=== PATIENT | male | born 1955 | race Caucasian/White ===

== ENCOUNTER 2021-10-05 08:50 | Outpatient (REF) | payer MEDICARE, MEDICAID, SELFPAY ==
[2021-10-05 11:26] LABS: Hematocrit 45.3 % (42.0-52.0); Hemoglobin 14.7 g/dl (14.0-18.0); Mean Corpuscular HGB Conc 32.5 g/dl (31.0-36.0); Mean Corpuscular Hemoglobin 29.1 pg (27.0-33.0); Mean Corpuscular Volume 89.7 fL (80.0-98.0); Mean Platelet Volume 9.3 fL (9.4-12.4); Platelet Count 419 X10*3/uL (160-400); Red Blood Count 5.05 X10*6/uL (4.60-5.80); Red Cell Distribution Width 13.6 % (11.0-16.0); White Blood Count 11.8 X10*3/uL (4.8-10.8)
[2021-10-05 11:40] LABS: Estimated Average Glucose 131 mg/dL; Hemoglobin A1c % 6.2 %
[2021-10-05 12:10] LABS: Anion Gap 15 (12-20); Blood Urea Nitrogen 16 mg/dL (9-16); Calcium 8.9 mg/dL (8.4-10.2); Carbon Dioxide 22 mmol/L (22-29); Chloride 108 mmol/L (96-108); Cholesterol 139 mg/dL; Estimated Glomerular Filt Rate > 60; Glucose Random 143 mg/dL (60-115); HDL Cholesterol 31 mg/dL; LDL Cholesterol Calculated 75 mg/dl; Potassium 4.2 mmol/L (3.3-5.1); Sodium 141 mmol/L (135-145); Triglycerides 165 mg/dL
[2021-10-05 12:20] LABS: Prostate Specific Antigen Scr 2.21 ng/mL (<0.05-4.0)
== END 2021-10-05 08:51 | disposition home or self-care (01) ==
LOC: HO.HMGCLDS 08:50
PROVIDERS: PCP Internal Medicine; Visit Provider Nurse Practitioner Family
DX: Z12.5 Encounter for screening for malignant neoplasm of prostate (principal); E11.9 Type 2 diabetes mellitus without complications; E78.00 Pure hypercholesterolemia, unspecified; I10 Essential (primary) hypertension
CPT/HCPCS: 36415; 80048; 80061; 83036; 84153; 85027

== ENCOUNTER 2021-10-31 12:17 | Outpatient (REF) | payer MEDICARE, MEDICAID, SELFPAY ==
--- NOTE | ~2021-10-31 | XR_ITS ---
EXAMINATION: XR SHOULDER, LEFT CLINICAL INFORMATION: Pain COMPARISON: None TECHNIQUE: Three views of the left shoulder. FINDINGS: Bone alignment is normal. No acute fracture or dislocation is seen. There is a small well-corticated soft tissue calcification adjacent to the distal clavicle questionable for old trauma. There is arthritis at the glenohumeral and acromioclavicular joints. XR/XR shoulder LT min 2V IMPRESSION: No acute fracture or dislocation. Arthritis at the glenohumeral and acromioclavicular joints.
--- NOTE | ~2021-10-31 | XR_ITS ---
EXAMINATION: LEFT HAND AND WRIST X-RAY CLINICAL INFORMATION: Pain. COMPARISON: None. TECHNIQUE: 3 views of the left hand and wrist. FINDINGS: There is an impacted fracture of the left distal radius. This appears intra-articular with the radiocarpal joint. The scaphoid bone appears foreshortened on the available views. There is question of dorsal tilt of the lunate on the lateral view. There appears to be arthritis with bony osteophyte projecting over the dorsal scapholunate joint and radiocarpal joint on the lateral view. There is a well-corticated ossification adjacent to the ulnar styloid may represent an old fracture. There is arthritis at the [facility]st [facility] joint. There is diffuse soft tissue swelling about the wrist. XR/XR hand wrist LT IMPRESSION: Acute impacted left distal radius fracture intra-articular with the radiocarpal joint. Severe arthritis at the wrist. Limited evaluation of the scaphoid and lunate and question abnormal alignment of the scapholunate joint. Additional imaging recommended. Ulnar styloid fracture, probably old.
== END 2021-10-31 12:18 | disposition home or self-care (01) ==
LOC: HO.HMGCX 12:17
PROVIDERS: Visit Provider Nurse Practitioner Family
DX: M25.512 Pain in left shoulder (principal); M79.642 Pain in left hand
CPT/HCPCS: 73030; 73110; 73130

== ENCOUNTER 2021-11-02 09:03 | Outpatient (REF) | payer MEDICARE, MEDICAID, SELFPAY ==
--- NOTE | ~2021-11-02 | XR_ITS ---
EXAMINATION: XR WRIST, LEFT CLINICAL INFORMATION: Left wrist pain. COMPARISON: Left hand and wrist radiograph dated 10/31/2021. TECHNIQUE: PA, lateral, and oblique views of the left wrist. FINDINGS: Redemonstration of a comminuted and mildly displaced distal radial fracture with a dominant transverse component as well as oblique components extending to the radiocarpal articular surface. No significant change in anatomic alignment or interval new bone/callus formation. Redemonstration of prominent radial carpal joint space narrowing with marginal osteophytes. Triscaphe and 1st carpometacarpal joint space narrowing with small marginal osteophytes again noted. Mild widening of the scapholunate space appears unchanged, which could indicate an underlying scapholunate ligament injury. XR/XR wrist LT min 3V IMPRESSION: 1. Comminuted and mildly displaced distal radial fracture with extension to the articular surface, unchanged. 2. Mild widening of the scapholunate interval, unchanged and likely indicating an underlying scapholunate ligament injury. 3. Prominent osteoarthritis at the radiocarpal joint as well as more moderate osteoarthritis at the triscaphe and 1st carpometacarpal joints, unchanged.
== END 2021-11-02 09:04 | disposition home or self-care (01) ==
LOC: HO.HOSX 09:03
PROVIDERS: Visit Provider Physician Assistant
DX: S52.502D Unspecified fracture of the lower end of left radius, subsequent encounter for closed fracture with routine healing (principal)
CPT/HCPCS: 73110; 99202

== ENCOUNTER 2021-11-06 08:51 | Day surgery (SDC) | payer MEDICARE, MEDICAID, SELFPAY ==
--- NOTE | 2021-11-03 11:06 | P.CONAN_ITS ---
Documented by User: Miriam Yuan NP 11/03/21 11:10 HPI - Anesthesia Eval Consult details Narrative: 66yo M for Left Radius Distal Fracture ORIF [facility] admit with COVID 05/2021. RODRIGO likely d/t dehydration, no hypoxia. F/U with PCP states resolved. [facility] Active Problems Active Problems: All Active Problems (Updated 10/31/21 @ 15:02 by TRISTON Pina) Fracture of left distal radius (Acute) Left wrist pain (Acute) Left shoulder pain (Acute) Left hand pain (Acute) Headache (Acute) Status post fall (Acute) Acute kidney injury (Acute) COVID-19 (Acute) Primary osteoarthritis of shoulders, bilateral (Acute) Vitamin D deficiency (Acute) Pure hypercholesterolemia (Acute) Diabetes mellitus (Acute) Benign essential hypertension (Acute) Hearing impairment (Acute) Hypercholesteremia (Acute) Colonoscopy refused (Acute) Prostate cancer screening (Acute) Diabetes type 2, controlled (Acute) Essential (primary) hypertension (Acute) Medicare annual wellness visit, initial (Acute ~08/21/21) Past Medical History Medical History Benign essential hypertension Diabetes mellitus Primary osteoarthritis of shoulders, bilateral Pure hypercholesterolemia Vitamin D deficiency Surgical History Surgical History No pertinent past surgical history Social History Social History (Updated 11/02/21 @ 10:23 by SVETLANA Plascencia) Housing: Apartment Alcohol intake: former Patient Tobacco Use Status: Former Tobacco user Second Hand Smoke Exposure: Yes Use of substances other than those prescribed or required for medical reasons: No Are you DNR?: No Advance Directives: No Advance Directives Information Provided: Yes service: No Current occupational status: retired Current occupation: rt hand Meds Allergies Allergy/AdvReac Type Severity Reaction Status Date / Time meperidine [Demerol] Allergy Unknown Unknown Verified 11/02/21 10:22 Exam Exam Date and Time: November 03, 2021 1106 Pertinent Lab Results Pertinent Lab Results: Laboratory Tests 10/05/21 10/05/21 09:03 09:03 WBC 11.8 H Hgb 14.7 Hct 45.3 Plt Count 419 H Sodium 141 Potassium 4.2 Chloride 108 Carbon Dioxide 22 BUN 16 Creatinine 1.00 A1C = 6.2% Narrative Narrative: EKG 05/2021 ([facility]) SR @ 82 Assessment and Plan Assessment Anesthesia Assessment: Chart Reviewed Documented by User: Diego Quiros MD 11/06/21 13:17 [facility] Past Medical History Medical History Benign essential hypertension Diabetes mellitus Primary osteoarthritis of shoulders, bilateral Pure hypercholesterolemia Vitamin D deficiency Family History Family history of problems with anesthesia: No Surgical History Surgical History No pertinent past surgical history History of Problems with Anesthesia: No Social History Social History (Updated 11/02/21 @ 10:23 by Mishel Pineda [facility]) Housing: Apartment Alcohol intake: former Patient Tobacco Use Status: Former Tobacco user Second Hand Smoke Exposure: Yes Use of substances other than those prescribed or required for medical reasons: No Are you DNR?: No Advance Directives: No Advance Directives Information Provided: Yes service: No Current occupational status: retired Current occupation: rt hand Meds Allergies Allergy/AdvReac Type Severity Reaction Status Date / Time meperidine [Demerol] Allergy Unknown Unknown Verified 11/02/21 10:22 Exam Airway Mallampati Class: III TM Dist: >3cm Neck ROM: Full Denture: Upper and Lower Assessment and Plan Assessment Anesthesia Assessment: Anesthesia Plan Discussed and Chart Reviewed Final Anesthetic Review Family History of Problems with Anesthesia: No History of Problems with Anesthesia: No NPO: Yes ASA Class: II Final Preanesthetic Review: No Changes in Pt Med Stat, Meds/Allgs Chart Reviewed, Consent Obtained/Reviewed and Anes Risks/Benef Reviewed Patient Risk: Intermediate Procedure Risk: Low Anesthetic Plan Anesthetic Plan: GA and Regional Block Disposition: Standard PACU
[2021-11-06] VITALS (12 sets, daily range): BP systolic 117–144; BP diastolic 62–82; PULSE 72–86; RESP 16–18; TEMP 36.6–37.2; O2SAT 93–98; BMI 20.5
--- NOTE | ~2021-11-06 | FL_ITS ---
EXAMINATION: XR FLUOROSCOPY WITH IMAGES CLINICAL INFORMATION: Left distal radius fracture. COMPARISON: Previous x-ray 11/02/2021. TECHNIQUE: Fluoroscopy performed by Mary Phillips. Fluoroscopy time: 1 minute DAP: [id number] Images: 4 FINDINGS: Images demonstrate new plate and screws transfixing the left distal radius fracture with improved alignment. FL/FL guidance in OR IMPRESSION: Fluoroscopic guidance for ORIF of left distal radius fracture.
[2021-11-06 10:39] LABS: Glucose, Whole Blood 167 mg/dL (60-115)
--- NOTE | 2021-11-06 11:45 | MHC.SHP ---
Pre-Procedural Eval Section A Date of Service: 11/06/21 Section B Chief Complaint: fx of lower end of left radius and numbness today Allergies: Allergies Allergy/AdvReac Type Severity Reaction Status Date / Time meperidine [Demerol] Allergy Unknown Unknown Verified 11/02/21 10:22 Plan Diagnosis/Plan: Change (for left distal radius ORIF, and CTR) I have reviewed the history and physical and performed a pertinent physical examination on my patient. No changes have occurred unless specified.
--- NOTE | 2021-11-06 11:46 | P.OP_ITS ---
Operative Note Operative Note Date of Service: 11/06/21 Narrative: Operative Note Narrative: Preop diagnosis: 1. Left Distal radius fracture 2. Left carpal tunnel syndrome, acute Postop diagnosis: Same Procedure: 1. Left Distal radius fracture open reduction internal fixation , extra- articular 2. Left carpal tunnel release Surgeon: Mary Phillips MD Anesthesia: Mac plus regional block Findings: left distal radius fracture Implants: A 3 hole Accu Med volar locking plate, with 4x 2.3 mm locking pegs/screws, and 3 3.5 mm cortical screws Tourniquet time: 55 minutes EBL: 5.0 ml Specimen: None Drains: None Complications: None Disposition: Brought to the recovery room in stable condition Plan: Follow-up in 10-14 days for wound check, suture removal and postop radiographs The patient will be placed in a volar wrist splint. Encouraged no lifting of anything heavier than a cell phone. Please encourage active and passive range of motion of the digits. Follow-up at 4-5 weeks postop for repeat radiographs. Indications: The patient is a 66 year old man with a left distal radius fracture and numbness that is now persistent in his fingertips . The risks and benefits of operative treatment, including but not limited to risk of damage to blood vessels, nerves, tendons, infection, recurrence, persistent pain or numbness, incomplete resolution of preoperative symptoms, or need for further surgery were discussed with the patient and they wished to proceed with surgery. Procedure: Once consent was obtained patient was brought back to the operating suite and placed in the operating table in a supine position. A regional block was performed by the anesthesia team. Perioperative antibiotics and anesthesia was administered by the anesthesia team. A tourniquet was applied to the proximal aspect of the left upper extremity and the limb was prepped and draped in a standard surgical fashion. The limb was elevated exsanguinated with Esmarch bandage and the tourniquet inflated to 250 mm of mercury for a total tourniquet time of 55 minutes. Once assured that we had a good block, a 1.5 cm longitudinal incision was made centered over the left carpal tunnel. The incision was made through the skin to the subcutaneous tissues using a #15 blade. Dissection was made down to the level of the transverse carpal ligament with care being taken to protect the palmar cutaneous nerve. Once the transverse carpal ligament was clearly visualized, a longitudinal incision was made in the transverse carpal ligament 1st using a #15 blade, then using tenotomy scissors under direct visualization. Care was taken to look for and protect the motor branch of the median nerve when seen in this area. Once satisfied with our carpal tunnel release the wound was irrigated with normal saline. The FluoroScan was used throughout the case to assess our reduction, and facilitate implant placement. A gentle closed reduction was 1st performed on the patient's left distal radius fracture. Was assessed radiographically befor e proceeding with the reduction internal fixation. I then made an 8 cm longitudinal incision over the distal aspect of the flexor carpi radialis tendon. The incision was made through the skin to the subcutaneous tissue using a 15. Blade. Then carefully dissected down to flexor carpi radialis tendon she tenotomy scissors. The FCR tendon sheath was then incised longitudinally using tenotomy scissors under direct visualization. The FCR tendon was then retracted ulnarly. I then made a longitudinal incision in the volar forearm fascia through the floor of FCR tendon sheath using tenotomy scissors under direct visualization. I identified the interval between the radial artery and the flexor tendons. This interval was developed further with my index finger, releasing some of the muscular fibers of the flexor pollicis longus. A dull weatlander retractor was then placed. I then created an ulnarly based flap of the pronator quadratus by releasing the radial and distal edges using a 15. Blade. A Dunham elevator was used to elevate the pronator quadratus from the volar surface of the distal radius. This then revealed to us our distal radius fracture. An open reduction was then performed on our distal radius fracture. I then placed a short narrow 3 hole Accu Med volar locking plate on the volar surface of the distal radius. I placed a single K-wire through the distal aspect of the plate and into the distal radius. This was assessed using fluoroscopic images. I was satisfied with the placement of our plate. I then placed 4x 2.3 mm locking screws/pegs in the distal aspect of the plate and distal radius by 1st drilling bicortically with a 1.8 mm drill bit, measuring with a depth gauge, and placing the appropriate length locking screws/pegs. The placement of our plate and screws was then assessed again using fluoroscopic images. The once satisfied with the placement of the volar locking plate and screws on the distal aspect of the distal radius, the plate was then reduced to the shaft of the radius. I then placed 3 3.5 mm cortical screws to the proximal aspect of the plate and into the shaft of the radius. This was done by 1st drilling bicortically with a 2.8 mm drill bit, measuring with a depth gauge, and placing the appropriate length screw. Final radiographs were then obtained. The DRUJ was assessed and found to be stable on exam. I was satisfied with our reduction and placement of all implants. At this point the wound was irrigated with normal saline. The pronator quadratus was reduced back over the volar locking plate using some 3-0 Vicryl suture material. The tourniquet was then deflated and hemostasis was obtained with a brief period of local pressure and bipolar monopolar electrocautery. The subcutaneous layer was then reapproximated using some 4-0 Vicryl suture, and the skin edges were reapproximated using some 5 0 Prolene suture. The wound was then infiltrated with some 1% lidocaine with epinephrine postop pain control. A sterile dressing and a short dorsal splint allowing for active flexion and extension of the digits was applied. The patient appears to have tolerated the procedure well and with no complications. All digits were well vascularized conclusion of the case.
== END 2021-11-06 16:45 | disposition home or self-care (01) ==
PROVIDERS: PCP Internal Medicine; Visit Provider Orthopaedic Surgery
PROC: (CPT 25607; principal; 2021-11-06 10:40)
PROC: (CPT 64721; 2021-11-06 10:40)
DX: S52.552A Other extraarticular fracture of lower end of left radius, initial encounter for closed fracture (principal); G56.02 Carpal tunnel syndrome, left upper limb; R20.0 Anesthesia of skin; G25.0 Essential tremor; W17.89XA Other fall from one level to another, initial encounter; Y93.K1 Activity, walking an animal; Y92.9 Unspecified place or not applicable; Y99.8 Other external cause status; I10 Essential (primary) hypertension; E11.9 Type 2 diabetes mellitus without complications; E78.00 Pure hypercholesterolemia, unspecified; E55.9 Vitamin D deficiency, unspecified; M19.012 Primary osteoarthritis, left shoulder; M19.011 Primary osteoarthritis, right shoulder; H91.90 Unspecified hearing loss, unspecified ear; H54.8 Legal blindness, as defined in USA; Z79.899 Other long term (current) drug therapy; Z88.8 Allergy status to other drugs, medicaments and biological substances; Z86.16 Personal history of COVID-19; Z87.891 Personal history of nicotine dependence
CPT/HCPCS: 25607; 64721; 82947; C1713; C1769; J0690; J1100; J2250; J2405; J3010

== ENCOUNTER 2021-11-21 09:07 | Outpatient (REF) | payer MEDICARE, MEDICAID, SELFPAY ==
--- NOTE | ~2021-11-21 | XR_ITS ---
EXAMINATION: XR WRIST, LEFT CLINICAL INFORMATION: Pain COMPARISON: None TECHNIQUE: PA, lateral, and oblique views of the left wrist. FINDINGS: Postsurgical changes, hardware plate and multiple screws through the distal radius across the fracture lines, anatomic alignment restored. Distal ulna, radiocarpal, intercarpal and carpometacarpal joints are intact, there are underlying degenerative osteoarthritic changes. XR/XR wrist LT min 3V IMPRESSION: Hardware, ORIF distal radial fracture. Degenerative osteoarthritis.
== END 2021-11-21 09:08 | disposition home or self-care (01) ==
LOC: HO.HOSX 09:07
PROVIDERS: Visit Provider Orthopaedic Surgery
DX: S52.502A Unspecified fracture of the lower end of left radius, initial encounter for closed fracture (principal)
CPT/HCPCS: 29125; 73110; 99212

== ENCOUNTER 2021-12-13 08:09 | Outpatient (REF) | payer MEDICARE, MEDICAID, SELFPAY ==
--- NOTE | ~2021-12-13 | XR_ITS ---
EXAMINATION: XR WRIST, LEFT CLINICAL INFORMATION: Pain in left wrist COMPARISON: None TECHNIQUE: PA, lateral, and oblique views of the left wrist. FINDINGS: There is old healed distal radial fracture with volar plate and screws. There is loss of and radiocarpal, scapholunate lunate joints with mild dorsal spurring. No new acute fracture or dislocation seen. There is mild dorsal soft tissue swelling. XR/XR wrist LT min 3V IMPRESSION: Old healed fracture distal radius with volar hardware stable. There are degenerative arthritic changes involving the wrist joint as described above.
== END 2021-12-13 08:10 | disposition home or self-care (01) ==
LOC: HO.HOSX 08:09
PROVIDERS: Visit Provider Orthopaedic Surgery
DX: S52.502D Unspecified fracture of the lower end of left radius, subsequent encounter for closed fracture with routine healing (principal)
CPT/HCPCS: 73110; 99212

== ENCOUNTER 2022-02-12 10:23 | Outpatient (REF) | payer MEDICARE, MEDICAID, SELFPAY ==
[2022-02-12 11:14] LABS: MANUAL DIFF FLAG NO
[2022-02-12 11:21] LABS: Basophils Percent Auto 0.2 % (0-2); Eosinophils Absolute Auto 0.2 X10*3/uL (0.0-0.4); Eosinophils Percent Auto 1.2 % (0-4); Hematocrit 42.8 % (42.0-52.0); Hemoglobin 13.4 g/dl (14.0-18.0); Imm Gran Abs Auto 0.05 X10*3/uL (0.00-0.03); Imm Gran Pct Auto 0.4 % (0.0-0.4); Lymphocytes Percent Auto 24.2 % (20-40); Mean Corpuscular HGB Conc 31.3 g/dl (31.0-36.0); Mean Corpuscular Hemoglobin 26.6 pg (27.0-33.0); Mean Corpuscular Volume 84.9 fL (80.0-98.0); Mean Platelet Volume 9.9 fL (9.4-12.4); Monocytes Absolute Auto 0.8 X10*3/uL (0.1-1.2); Monocytes Percent Auto 6.5 % (2-11); Neutrophils Absolute Auto 8.3 x10*3/uL (2.0-8.3); Neutrophils Percent Auto 67.5 % (45-73); Platelet Count 349 X10*3/uL (160-400); Red Blood Count 5.04 X10*6/uL (4.60-5.80); Red Cell Distribution Width 14.1 % (11.0-16.0); White Blood Count 12.4 X10*3/uL (4.8-10.8)
[2022-02-12 11:29] LABS: Estimated Average Glucose 180 mg/dL; Hemoglobin A1c % 7.9 %
[2022-02-12 12:03] LABS: Prostate Specific Antigen 1.17 ng/mL (<0.05-4.0); TSH reflex Free T4 0.82 uIU/mL (0.32-4.0)
[2022-02-12 12:20] LABS: Alanine Aminotransferase 19 U/L (0-40); Albumin Level 4.1 g/dL (3.5-5.0); Alkaline Phosphatase 80 U/L (39-117); Anion Gap 14 (12-20); Aspartate Amino Transferase 15 U/L (5-37); Blood Urea Nitrogen 23 mg/dL (9-16); Carbon Dioxide 23 mmol/L (22-29); Chloride 106 mmol/L (96-108); Cholesterol 132 mg/dL; Estimated Glomerular Filt Rate > 60; Glucose Fasting 220 mg/dL (60-99); HDL Cholesterol 39 mg/dL; LDL Cholesterol Calculated 69 mg/dl; Potassium 4.1 mmol/L (3.3-5.1); Sodium 139 mmol/L (135-145); Total Protein 7.1 g/dL (6.5-8.0); Triglycerides 123 mg/dL
[2022-02-12 12:28] LABS: Bilirubin Total 0.3 mg/dL (0.0-1.0)
== END 2022-02-12 10:24 | disposition home or self-care (01) ==
LOC: HO.HMGCLDS 10:23
PROVIDERS: PCP Internal Medicine; Visit Provider Internal Medicine
DX: Z12.5 Encounter for screening for malignant neoplasm of prostate (principal); E55.9 Vitamin D deficiency, unspecified; E11.9 Type 2 diabetes mellitus without complications; N40.0 Benign prostatic hyperplasia without lower urinary tract symptoms; I10 Essential (primary) hypertension; E78.00 Pure hypercholesterolemia, unspecified
CPT/HCPCS: 36415; 80053; 80061; 82306; 83036; 84153; 84443; 85025

== ENCOUNTER 2022-02-14 12:07 | Outpatient (REF) | payer MEDICARE, MEDICAID, SELFPAY ==
[2022-02-14 13:53] LABS: Appearance Urine CLEAR; Color Urine STRAW; Glucose Urine UA 100 MG/DL (NEG); Leukocyte Esterase Urine NEG (NEG); Nitrite Urine NEG (NEG); Urine Blood NEG (NEG); Urine Ketones NEG (NEG); Urine Protein NEG (NEG-TRACE)
== END 2022-02-14 12:08 | disposition home or self-care (01) ==
LOC: HO.HMGCLNP 12:07
PROVIDERS: PCP Internal Medicine; Visit Provider Internal Medicine
DX: I10 Essential (primary) hypertension (principal)
CPT/HCPCS: 81003

== ENCOUNTER 2022-04-03 11:25 | Outpatient (REF) | payer MEDICARE, MEDICAID, SELFPAY ==
--- NOTE | ~2022-04-03 | US_ITS ---
EXAMINATION: US SCROTUM CLINICAL INFORMATION: Right testicular pain. COMPARISON: None TECHNIQUE: A sonogram of the scrotum was performed assessing thornton-scale appearance and color Doppler flow. Spectral Doppler analysis of the arterial and venous flow were performed in the testes bilaterally. FINDINGS: RIGHT: Right testicle measures 4.7 x 2.3 x 3.0 cm, volume 17.0 mL. No focal testicular parenchymal lesions are visualized. Spectral Doppler analysis of the arterial and venous flow is normal in the right testis. Right epididymal head is normal in size. No right varicocele is seen. There is a small right hydrocele. Right epididymal Doppler flow is normal. LEFT: Left testicle measures 5.3 x 2.2 x 3.4 cm, volume 20.8 mL. No focal testicular parenchymal lesions are visualized. Spectral Doppler analysis of the arterial and venous flow is normal in the left testis. Left epididymal head is normal in size. No left varicocele is seen. There is no left hydrocele. Left epididymal Doppler flow is normal. US/US scrotum IMPRESSION: Small right hydrocele otherwise unremarkable exam.
--- NOTE | ~2022-04-03 | US_ITS ---
EXAMINATION: US RETROPERITONEAL LIMITED (RENAL ONLY) CLINICAL INFORMATION: Anuria and oliguria. COMPARISON: None TECHNIQUE: Real-time imaging of the kidneys. FINDINGS: RIGHT KIDNEY: 11.5 x 4.8 x 5.7 cm (SAG x AP x TRV). The kidney is normal in size, contour, and echogenicity. Renal cortical thickness is normal. There may be a duplicated collecting system or prominent column of Je. No calculi or focal parenchymal lesions. No hydronephrosis. LEFT KIDNEY: 9.5 x 5.2 x 4.8 cm (SAG x AP x TRV). The kidney is normal in size, contour, and echogenicity. Renal cortical thickness is normal. No calculi or focal parenchymal lesions. No hydronephrosis. US/US renal BI IMPRESSION: Unremarkable exam.
== END 2022-04-03 11:26 | disposition home or self-care (01) ==
LOC: HO.HMGCX 11:25
PROVIDERS: PCP Nurse Practitioner Family; Visit Provider Nurse Practitioner Family
DX: N50.811 Right testicular pain (principal); N50.812 Left testicular pain; R34 Anuria and oliguria
CPT/HCPCS: 76775; 76870

== ENCOUNTER 2023-09-19 12:15 | Outpatient (AMB) | payer MEDICARE, MEDICAID, SELFPAY ==
[2023-09-19 12:17] VITALS: BP 118/80; PULSE 74; O2SAT 98; BMI 27.4
--- NOTE | 2023-09-19 12:17 | MHC.PC.OV ---
Vital Signs 09/19/23 12:17 Height 5 ft 2 in Weight 150 lb BMI 27.4 BP 118/80 Blood Pressure Location Lt brachial Position Sitting Pulse 74 Pulse Source Pulse Oximeter Pulse Oximetry (%) 98 Oxygen Delivery Method Room Air Intake Visit Reasons: med review Senior Manager Quality Assurance Required: No Enterprise Application Administrator: Present Accompanied by: Sister Allergies meperidine [Demerol] Allergy (Unknown, Verified 09/19/23 12:53) Unknown Medication List - Last Reconciled 09/19/23 by Tim Nam MD acetaminophen 650 mg (2 x 325 mg) PO Q6H PRN amlodipine 10 mg PO DAILY gabapentin 100 mg PO TID 30 days ibuprofen 600 mg PO Q6-8H PRN ibuprofen 400 mg PO Q8H PRN lisinopril 20 mg PO DAILY oxycodone-acetaminophen 5-325 mg 1 - 2 tabs PO Q6H PRN pioglitazone 30 mg PO DAILY rosuvastatin 20 mg PO DAILY tamsulosin 0.4 mg PO BEDTIME 90 days Tobacco use date assessed: 09/19/23 Fall risk assessment: No Falls in past year Last assessed Fall Risk: 09/19/23 Dental Screening Dental Screen Date: 09/19/23 Did you have a dental visit in the last 12 months?: No Did you have a dental problem in the last 6 months where you did not have access to dental care?: No Was dental information given to patient?: No (no teeth) HPI med review HPI Details Patient comes in today for his follow up visit - has not been back since May 2022 Patient states that he feels okay He denies any headaches or dizziness Denies any chest pains but reports experiencing frequent shortness of breath, especially with exertion, lately No nausea/ vomiting, no abdominal pain No change in bowel habits noted Needs all of his Rx refilled Has no follow-up labs done recently [facility] Medical History Overweight (BMI 25.0-29.9) Primary osteoarthritis of shoulders, bilateral Vitamin D deficiency Pure hypercholesterolemia Diabetes mellitus Benign essential hypertension Surgical History H/O left wrist surgery Social History Housing: Apartment Alcohol intake: former Patient Tobacco Use Status: Former Tobacco user e-Cigarette/Vaping Use: Never Used Second Hand Smoke Exposure: Yes service: No Current occupational status: retired Current occupation: rt hand Cognitive needs: No Hearing needs: Yes Vision needs: Yes Questionnaire PHQ-9 Over the last 2 weeks, how often have you been bothered by any of the following problems? 1. Little interest or pleasure in doing things: not at all 2. Feeling down, depressed, or hopeless: not at all 3. Trouble falling or staying asleep, or sleeping too much: not at all 4. Feeling tired or having little energy: not at all 5. Poor appetite or overeating: not at all 6. Feeling bad about yourself - or that you are a failure or have let yourself or your family down: not at all 7. Trouble concentrating on things, such as reading the newspaper or watching television: not at all 8. Moving or speaking so slowly that other people could have noticed. Or the opposite - being so fidgety or restless that you have been moving around a lot more than usual: not at all 9. Thoughts that you would be better off or of hurting yourself in some way: not at all Total score: 0 Depression Screening Interpretation: Negative Depression Screening Done: Yes 12539 - PHQ-9 Billing: Yes Source: Developed by Drs. Sudhir Eddy, Yeni Harrison, Cristi Ramos and colleagues, with an educational miracle from [employer] Thrive Questionnaire Date Thrive assessed: 09/19/23 I am a: Patient What is your living situation today?: I have a steady place to live Within the past 12 months, did the food you bought not last and you didn't have the money to get more?: Never true Within the past 12 months, did you worry whether your food would run out before you got money to buy more?: Never true Do you have trouble paying for medicines?: No Do you have trouble getting transportation to medical appointments?: No Do you have trouble paying your heating and electricity bill?: No Do you have trouble taking care of your child, family member or friend?: No Do you have trouble with day-to-day activities such as bathing, preparing meals, shopping, managing finances, etc.?: No Are you currently unemployed and looking for a job?: No Are you interested in more education?: No Please select the resources that you would like help with: None Currently or been in a relationship where the following occur: no concerns reported AUDIT C Alcohol Use Questionnaire (AUDIT-C) 1. How often do you have a drink containing alcohol?: Never 3. How often do you have six or more drinks on one occasion?: Never Total Score: 0 Score Reviewed/Action Taken: Yes SAL-7 AMB Questionnaire SAL-7 Date SAL - 7 assessed: 09/19/23 Feeling nervous, anxious, or on edge: 0 = Not at all Not being able to stop or control worryin = Not at all Worrying too much about different things: 0 = Not at all Trouble relaxin = Not at all Being so restless that it is hard to sit still: 0 = Not at all Becoming easily annoyed or irritable: 0 = Not at all Feeling afraid as if something awful might happen: 0 = Not at all Total SAL-7 score (0-4 normal; 5-9 mild; 10-14 moderate; 15-21 severe): 0 Source: Developed by Drs. Sudhir Eddy, Yeni Harrison, Cristi Ramos and colleagues, with an educational miracle from [employer] SAL-7 Assessment Billing SAL-7 Assessment Tool: SAL-7 Assessment 44032 Review of Systems Const Denies chills, Denies fatigue, Denies fever(s) and Denies headache(s) ENT Denies dysphagia, Denies dizziness, Denies otalgia, Denies headache(s), Denies odynophagia and Denies sore throat Card Denies chest pain, Denies palpitations and Reports dyspnea on exertion (recurrent lately) Resp Denies cough and Reports dyspnea on exertion (recurrent lately) GI Denies abdominal pain, Denies constipation, Denies dysphagia, Denies heartburn, Denies diarrhea, Denies nausea, Denies odynophagia and Denies vomiting Denies dysuria, Reports nocturia (at least 5 to 6 times a night) and Reports urinary frequency Musc Reports back pain (on and off, over the lower back) Skin/Breast Denies rash Neuro Denies dizziness and Denies headache(s) Endo Denies fatigue and Denies palpitations Physical exam (Primary Care) Vital Signs: Last Vital Signs Pulse 74 09/19/23 12:17 BP 118/80 09/19/23 12:17 Pulse Ox 98 09/19/23 12:17 Oxygen Delivery Method Room Air 09/19/23 12:17 BMI result Body Mass Index 27.4 Tobacco/Smoking Status: Tobacco use Status Tobacco use date assessed 09/19/23 09/19/23 12:20 Patient Tobacco Use Status Former Tobacco user 09/19/23 12:20 e-Cigarette/Vaping Use Never Used 09/19/23 12:27 PHQ-9: PHQ-9 Score PHQ-9: Total score 0 09/19/23 12:55 Depression Screening Interpretation: Negative Thrive Assessment: Date of Thrive Assessment Date Thrive assessed 09/19/23 09/19/23 12:27 Currently or been in a relationship where the following occur: no concerns reported Const General: no acute distress and alert HENMT Ears: TM's normal bilaterally and EAC's normal Throat: Yes posterior oropharynx normal and Yes tonsils normal (no TP congestion) Neck Neck: Yes no lymphadenopathy and Yes supple Resp Auscultation: clear to auscultation bilaterally, no rales and no wheezes Cardio Rate: regular rate Rhythm: regular rhythm Heart sounds: no murmurs GI Palpation (GI): Soft to palpation and nontender Auscultation: normal bowel sounds Back/Spine/Pelvis Thoracic/Lumbar Spine: lumbar spinal tenderness Skin General skin exam: no rashes or lesions noted Extrem General: Yes no clubbing, cyanosis or edema Results AMB Hemoglobin A1c AMB Hemoglobin A1c 10.3 % Last Edit by Nora Espinal on 09/19/23 12:29 Results Reviewed Results Reviewed: Laboratory Last Values Hgb A1c (Clinic) 10.3 % (4.0-6.0) H 09/19/23 12:17 Assessment and Plan Assessment & Plan (1) Diabetes mellitus: Code(s): E11.9 - Type 2 diabetes mellitus without complications Qualifiers: Diabetes mellitus type: type 2 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: without longterm use Diabetes mellitus complication status: without complication Qualified Code(s): E11.9 - Type 2 diabetes mellitus without complications Plan: In-office HgbA1c done today is at 10.3% (was at 7.1% when he was last seen over a year ago in May 2022) - goal is <7.0% Reinforced diabetic diet - patient's sister states that he has been drinking sodas frequently lately Continue Pioglitazone 30 mg QD for now but advised that if he cannot get his diabetes back under control over the next few months, then we will need to start him additionally on more medications for his diabeter Will send him to get some follow up labs done LEONEL as has been over a year now since he's had some labs done (2) Benign essential hypertension: Code(s): I10 - Essential (primary) hypertension Plan: Reinforced low sodium diet - goal is systolic BP of at least 120 to 130 mm or less Continue Amlodipine 10 mg QD and Lisinopril 20 mg QD Patient is again reminded to continue monitoring his BP regularly (3) Pure hypercholesterolemia: Code(s): E78.00 - Pure hypercholesterolemia, unspecified Plan: Will also send him to the lab to recheck his fasting lipids and his LFTs LEONEL Reinforced low-cholesterol diet Continue Rosuvastatin 20 mg QD Will recheck his labs and fasting lipids in 4 months for follow-up (4) Exertional dyspnea: Code(s): R06.09 - Other forms of dyspnea Plan: Unclear at this time what is the actual etiology of his symptoms - discussed possibilities including ILD, reactive airways, cardiac issues or physical decompensation Will send him for chest x-rays LEONEL for further evaluation (5) Vitamin D deficiency: Code(s): E55.9 - Vitamin D deficiency, unspecified Plan: Continue Vitamin D3 1000 units QD Will recheck Vitamin D level LEONEL for follow up (6) Low back pain: Code(s): M54.50 - Low back pain, unspecified Qualifiers: Chronicity: chronic Back pain laterality: midline Sciatica presence: without sciatica Qualified Code(s): M54.50 - Low back pain, unspecified; G89.29 - Other chronic pain Plan: Reinforced activity and weight-lifting restrictions Patient was previously sent for lumbar spine x-rays for further evaluation but he has not gotten them done so far; will send him again for lumbar spine x-rays Continue Gabapentin 100 mg TID (7) Primary osteoarthritis of shoulders, bilateral: Code(s): M19.011 - Primary osteoarthritis, right shoulder; M19.012 - Primary osteoarthritis, left shoulder Plan: X-rays of both shoulders done a few years ago revealed (+) OA changes in both shoulders, slightly worse in the right side Was taking Meloxicam in the past for joint pains although he has not taken this in a while and has been taking OTC Ibuprofen PRN instead Will consider referral to Orthopedics for further management if his shoulder symptoms flare up again or progress (8) Increased urinary frequency: Code(s): R35.0 - Frequency of micturition Plan: Most likely due to BPH Will check U/A and PSA in 4 months LEONEL for further evaluation Continue Tamsulosin 0.4 mg Q HS (9) Overweight (BMI 25.0-29.9): Code(s): E66.3 - Overweight Plan: Reinforced diet/exercise as tolerated/lose weight Plan Follow up in 4 months Orders: Orders AMB Hemoglobin A1c 09/19/23 Z13.9 - Encounter for screening, unspecified Complete Blood Count Auto Diff 09/19/23 I10 - Essential (primary) hypertension Comprehensive Mart. Panel Fast 09/19/23 E78.00 - Pure hypercholesterolemia, unspecified UA CC w/rflx Micro + Cult 09/19/23 R30.0 - Dysuria Vitamin D 25-OH Total 09/19/23 E55.9 - Vitamin D deficiency, unspecified Microalbumin, Random (w Creat) 09/19/23 E11.9 - Type 2 diabetes mellitus without complications Comprehensive Mart. Panel Fast 4 Months E78.00 - Pure hypercholesterolemia, unspecified Microalbumin, Random (w Creat) 4 Months E11.9 - Type 2 diabetes mellitus without complications XR chest 2V 09/19/23 R06.09 - Other forms of dyspnea B Type Natriuretic Peptide 09/19/23 I50.9 - Heart failure, unspecified Lipid Panel 09/19/23 E78.00 - Pure hypercholesterolemia, unspecified TSH reflex Free T4 09/19/23 E78.00 - Pure hypercholesterolemia, unspecified Hemoglobin A1c 4 Months E11.9 - Type 2 diabetes mellitus without complications Lipid Panel 4 Months E78.00 - Pure hypercholesterolemia, unspecified UA CC w/rflx Micro + Cult 4 Months R30.0 - Dysuria Prostate Specific Antigen Today N40.0 - Benign prostatic hyperplasia without lower urinary tract symptoms XR lumbar spine 2-3V Today M54.50 - Low back pain, unspecified Medications: Changed From amlodipine 10 mg PO DAILY 10 tabs 0RF To amlodipine 10 mg PO DAILY 90 days 90 tabs 1RF From pioglitazone needs to schedule appt LEONEL. HAS NOT BEEN SEEN IN OVER A YEAR 30 mg PO DAILY 90 tabs 0RF To pioglitazone 30 mg PO DAILY 90 days 90 tabs 1RF From rosuvastatin 20 mg PO DAILY 90 tabs 0RF To rosuvastatin 20 mg PO DAILY 90 days 90 tabs 1RF Refilled ibuprofen 400 mg PO Q8H PRN 15 tabs 0RF pain M25.532 - Pain in left wrist gabapentin 100 mg PO TID 30 days 90 caps 3RF lisinopril 20 mg PO DAILY 90 tabs 1RF tamsulosin 0.4 mg PO BEDTIME 90 days 90 caps 1RF N40.1 - Benign prostatic hyperplasia with lower urinary tract symptoms, R35.1 - Nocturia Coding Level of Care Code Est Pt Level 4 (22131) Diagnoses Type 2 diabetes mellitus without complication, without long-term current use of insulin E11.9 Diabetes mellitus type: type 2 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: without room service waiter/waitress use Diabetes mellitus complication status: without complication Benign essential hypertension I10 Pure hypercholesterolemia E78.00 Exertional dyspnea R06.09 Vitamin D deficiency E55.9 Chronic midline low back pain without sciatica M54.50; G89.29 Chronicity: chronic Back pain laterality: midline Sciatica presence: without sciatica Primary osteoarthritis of shoulders, bilateral M19.011; M19.012 Increased urinary frequency R35.0 Overweight (BMI 25.0-29.9) E66.3 Additional Codes SAL-7 Assessment Billing - SAL-7 Assessment Tool: SAL-7 Assessment 79942 ([id number])
== END 2023-09-19 13:04 | disposition home or self-care (01) ==
PROVIDERS: PCP Internal Medicine; Visit Provider Internal Medicine
DX: E11.9 Type 2 diabetes mellitus without complications (principal)
CPT/HCPCS: 83036; 99214

== ENCOUNTER 2023-09-20 09:34 | Outpatient (REF) | payer MEDICARE, MEDICAID, SELFPAY ==
--- NOTE | ~2023-09-20 | XR_ITS ---
EXAMINATION: XR CHEST, 2 VIEWS CLINICAL INFORMATION: Dyspnea. COMPARISON: None. TECHNIQUE: PA and lateral views of the chest were obtained. FINDINGS: Lungs are clear. No consolidation, pneumothorax, or pleural effusion. Cardiac and mediastinal contours are normal. Pulmonary vasculature is unremarkable. Trachea is midline. Bones are osteopenic. Bridging osteophytes are present along the thoracic spine anteriorly. Osteoarthritis is present in the acromioclavicular and glenohumeral joints. Right humeral head abuts the undersurface of the acromion, consistent with chronic changes of a right rotator cuff tear. XR/XR chest 2V IMPRESSION: No acute pulmonary findings.
[2023-09-20 11:40] LABS: MANUAL DIFF FLAG NO
[2023-09-20 11:45] LABS: Basophils Absolute Auto 0.1 X10*3/uL (0.0-0.2); Basophils Percent Auto 0.6 % (0-2); Eosinophils Absolute Auto 0.2 X10*3/uL (0.0-0.4); Eosinophils Percent Auto 1.8 % (0-4); Hematocrit 42.6 % (42.0-52.0); Hemoglobin 13.8 g/dl (14.0-18.0); Imm Gran Abs Auto 0.04 X10*3/uL (0.00-0.03); Imm Gran Pct Auto 0.4 % (0.0-0.4); Lymphocytes Absolute Auto 2.8 X10*3/uL (1.2-4.9); Lymphocytes Percent Auto 27.1 % (20-40); Mean Corpuscular HGB Conc 32.4 g/dl (31.0-36.0); Mean Corpuscular Hemoglobin 28.3 pg (27.0-33.0); Mean Corpuscular Volume 87.5 fL (80.0-98.0); Mean Platelet Volume 10.2 fL (9.4-12.4); Monocytes Absolute Auto 0.8 X10*3/uL (0.1-1.2); Monocytes Percent Auto 7.9 % (2-11); Neutrophils Absolute Auto 6.4 x10*3/uL (2.0-8.3); Neutrophils Percent Auto 62.2 % (45-73); Platelet Count 349 X10*3/uL (160-400); Red Blood Count 4.87 X10*6/uL (4.60-5.80); Red Cell Distribution Width 14.4 % (11.0-16.0); White Blood Count 10.2 X10*3/uL (4.8-10.8)
[2023-09-20 12:02] LABS: B Type Natriuretic Peptide 40 pg/mL (<100)
[2023-09-20 12:48] LABS: Alanine Aminotransferase 15 U/L (0-40); Alkaline Phosphatase 71 U/L (39-117); Anion Gap 10 (12-20); Aspartate Amino Transferase 15 U/L (5-37); Bilirubin Total 0.4 mg/dL (0.0-1.0); Blood Urea Nitrogen 20 mg/dL (9-16); Calcium 8.8 mg/dL (8.4-10.2); Carbon Dioxide 25 mmol/L (22-29); Chloride 109 mmol/L (96-108); Cholesterol 110 mg/dL (<200); Estimated Glomerular Filt Rate > 60; Glucose Fasting 166 mg/dL (60-99); HDL Cholesterol 37 mg/dL (>40); LDL Cholesterol Calculated 54 mg/dL (<100); Potassium 4.4 mmol/L (3.3-5.1); Sodium 140 mmol/L (135-145); Total Protein 7.1 g/dL (6.5-8.0); Triglycerides 97 mg/dL (<150)
[2023-09-20 13:07] LABS: TSH reflex Free T4 1.17 uIU/mL (0.32-4.0); Vitamin D 25-OH Total 21.1 ng/mL (>30)
== END 2023-09-20 09:35 | disposition home or self-care (01) ==
LOC: HO.HMGCLDS 09:34
PROVIDERS: PCP Internal Medicine; Visit Provider Internal Medicine
DX: E78.00 Pure hypercholesterolemia, unspecified (principal); R06.09 Other forms of dyspnea; M54.50 Low back pain, unspecified; E11.9 Type 2 diabetes mellitus without complications; N40.0 Benign prostatic hyperplasia without lower urinary tract symptoms; E55.9 Vitamin D deficiency, unspecified; I11.0 Hypertensive heart disease with heart failure; I50.9 Heart failure, unspecified; Z12.5 Encounter for screening for malignant neoplasm of prostate
CPT/HCPCS: 36415; 71046; 72100; 80053; 80061; 82306; 83880; 84153; 84443; 85025

== ENCOUNTER 2024-01-22 13:14 | Outpatient (AMB) | payer MEDICARE, MEDICAID, SELFPAY ==
[2024-01-22 13:15] VITALS: BP 118/72; PULSE 74; O2SAT 98; BMI 27.4
--- NOTE | 2024-01-22 13:15 | A.OFFPC_ITS ---
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 HOLD Rosuvastatin WHILE ON Paxlovid oxycodone-acetaminophen 5-325 mg 1 - 2 tabs PO Q6H PRN pioglitazone 30 mg PO DAILY 90 days rosuvastatin 20 mg PO DAILY 90 days tamsulosin 0.4 mg PO BEDTIME 90 days Tobacco use date assessed: 01/22/24 Fall risk assessment: No Falls in past year Last assessed Fall Risk: 01/22/24 Dental Screening Dental Screen Date: 01/22/24 Did you have a dental visit in the last 12 months?: Yes Did you have a dental problem in the last 6 months where you did not have access to dental care?: No Was dental information given to patient?: Patient has dentist HPI 4 Month F/U HPI Details Patient comes in today for his follow up visit States that he feels okay He denies any headaches or dizziness Denies any chest pains, no increased SOB No nausea/vomiting, no abdominal pain No change in bowel habits noted Needs his Tamsulosin Rx refilled He was not able to get his follow up labs done prior to his appointment today - his sister states that she will bring him over to get them done tomorrow morning PFSH Medical History Overweight (BMI 25.0-29.9) Primary osteoarthritis of shoulders, bilateral Vitamin D deficiency Pure hypercholesterolemia Diabetes mellitus Benign essential hypertension Surgical History H/O left wrist surgery Social History Housing: Apartment Alcohol intake: former Patient Tobacco Use Status: Former Tobacco user e-Cigarette/Vaping Use: Never Used Second Hand Smoke Exposure: Yes service: No Current occupational status: retired Current occupation: rt hand Cognitive needs: No Hearing needs: Yes Vision needs: Yes Questionnaire PHQ-9 Over the last 2 weeks, how often have you been bothered by any of the following problems? 1. Little interest or pleasure in doing things: not at all 2. Feeling down, depressed, or hopeless: not at all 3. Trouble falling or staying asleep, or sleeping too much: not at all 4. Feeling tired or having little energy: not at all 5. Poor appetite or overeating: not at all 6. Feeling bad about yourself - or that you are a failure or have let yourself or your family down: not at all 7. Trouble concentrating on things, such as reading the newspaper or watching television: not at all 8. Moving or speaking so slowly that other people could have noticed. Or the opposite - being so fidgety or restless that you have been moving around a lot more than usual: not at all 9. Thoughts that you would be better off or of hurting yourself in some way: not at all Total score: 0 Depression Screening Interpretation: Negative Depression Screening Done: Yes 13187 - PHQ-9 Billing: Yes Source: Developed by Drs. Sudhir Eddy, Yeni Harrison, Cristi Ramos and colleagues, with an educational miracle from [employer]. Thrive Questionnaire Date Thrive assessed: 01/22/24 I am a: Patient What is your living situation today?: I have a steady place to live Within the past 12 months, did the food you bought not last and you didn't have the money to get more?: Never true Within the past 12 months, did you worry whether your food would run out before you got money to buy more?: Never true Do you have trouble paying for medicines?: No Do you have trouble getting transportation to medical appointments?: No Do you have trouble paying your heating and electricity bill?: No Do you have trouble taking care of your child, family member or friend?: No Do you have trouble with day-to-day activities such as bathing, preparing meals, shopping, managing finances, etc.?: No Are you currently unemployed and looking for a job?: No Are you interested in more education?: No Please select the resources that you would like help with: None Currently or been in a relationship where the following occur: no concerns reported THRIVE Score: 0 AUDIT C Alcohol Use Questionnaire (AUDIT-C) 1. How often do you have a drink containing alcohol?: Never 3. How often do you have six or more drinks on one occasion?: Never Total Score: 0 Score Reviewed/Action Taken: Yes SAL-7 AMB Questionnaire SAL-7 Date SAL - 7 assessed: 01/22/24 Feeling nervous, anxious, or on edge: 0 = Not at all Not being able to stop or control worryin = Not at all Worrying too much about different things: 0 = Not at all Trouble relaxin = Not at all Being so restless that it is hard to sit still: 0 = Not at all Becoming easily annoyed or irritable: 0 = Not at all Feeling afraid as if something awful might happen: 0 = Not at all Total ASL-7 score (0-4 normal; 5-9 mild; 10-14 moderate; 15-21 severe): 0 Source: Developed by Drs. Sudhir Eddy, Yeni Harrison, Cristi Ramos and colleagues, with an educational miracle from [employer]. SAL-7 Assessment Billing SAL-7 Assessment Tool: SAL-7 Assessment 62313 Review of Systems Const Denies chills, Denies fatigue, Denies fever(s) and Denies headache(s) ENT Denies dysphagia, Denies dizziness, Denies otalgia, Denies headache(s), Denies odynophagia and Denies sore throat Card Denies chest pain, Denies palpitations and Reports dyspnea on exertion (on and off) Resp Denies cough and Reports dyspnea on exertion (on and off) GI Denies abdominal pain, Denies constipation, Denies dysphagia, Denies heartburn, Denies diarrhea, Denies nausea, Denies odynophagia and Denies vomiting Denies dysuria, Reports nocturia (at least 5 to 6 times a night) and Reports urinary frequency Musc Reports back pain (on and off, over the lower back) Skin/Breast Denies rash Neuro Denies dizziness and Denies headache(s) Endo Denies fatigue and Denies palpitations Physical exam (Primary Care) Vital Signs: Last Vital Signs Pulse 74 01/22/24 13:15 BP 118/72 01/22/24 13:15 Pulse Ox 98 01/22/24 13:15 Oxygen Delivery Method Room Air 01/22/24 13:15 BMI result Body Mass Index 27.4 Tobacco/Smoking Status: Tobacco use Status Tobacco use date assessed 01/22/24 01/22/24 13:16 Patient Tobacco Use Status Former Tobacco user 01/22/24 13:16 e-Cigarette/Vaping Use Never Used 01/22/24 13:16 PHQ-9: PHQ-9 Score PHQ-9: Total score 0 01/22/24 13:34 Depression Screening Interpretation: Negative Thrive Assessment: Date of Thrive Assessment Date Thrive assessed 01/22/24 01/22/24 13:16 Currently or been in a relationship where the following occur: no concerns reported Const General: no acute distress and alert HENMT Ears: TM's normal bilaterally and EAC's normal Throat: Yes posterior oropharynx normal and Yes tonsils normal (no TP congestion) Neck Neck: Yes no lymphadenopathy and Yes supple Thyroid: Thyroid normal Resp Auscultation: clear to auscultation bilaterally, no rales and no wheezes Cardio Rate: regular rate Rhythm: regular rhythm Heart sounds: no murmurs GI Palpation (GI): Soft to palpation and nontender Auscultation: normal bowel sounds General: Yes no CVA tenderness Back/Spine/Pelvis Back: no CVA tenderness Thoracic/Lumbar Spine: lumbar spinal tenderness Skin Rashes: no rashes Extrem General: Yes no clubbing, cyanosis or edema Results AMB Hemoglobin A1c AMB Hemoglobin A1c 11.9 % Last Edit by MYA Machado on 01/22/24 13:34 Results Reviewed Results Reviewed: Laboratory Last Values Hgb A1c (Clinic) 11.9 % (4.0-6.0) H 01/22/24 13:25 Assessment and Plan Assessment & Plan (1) Diabetes mellitus: Code(s): E11.9 - Type 2 diabetes mellitus without complications Qualifiers: Diabetes mellitus type: type 2 Diabetes mellitus exterminator helper insulin use: without nursing home use Diabetes mellitus complication status: without comp lication Qualified Code(s): E11.9 - Type 2 diabetes mellitus without complications Plan: In-office HgbA1c done today is at 11.9% (was at 10.3% a few months ago) - goal is <7.0% Reinforced diabetic diet Continue Pioglitazone 30 mg QD; will start him now additionally on Jardiance 25 mg QD He is advised to get his follow up labs done LEONEL (2) Benign essential hypertension: Code(s): I10 - Essential (primary) hypertension Plan: Reinforced low sodium diet - goal is systolic BP of at least 120 to 130 mm or less Continue Amlodipine 10 mg QD and Lisinopril 20 mg QD Patient is again reminded to continue monitoring his BP regularly (3) Pure hypercholesterolemia: Code(s): E78.00 - Pure hypercholesterolemia, unspecified Plan: He is instructed to get his follow up labs done LEONEL Reinforced low-cholesterol diet Continue Rosuvastatin 20 mg QD Will recheck his labs and fasting lipids in 4 months for follow-up (4) Exertional dyspnea: Code(s): R06.09 - Other forms of dyspnea Plan: Etiology is unclear but is likely due to physical decompensation Chest x-rays done back in August 2023 came out normal (5) Vitamin D deficiency: Code(s): E55.9 - Vitamin D deficiency, unspecified Plan: Continue Vitamin D3 1000 units QD (6) Low back pain: Code(s): M54.50 - Low back pain, unspecified Qualifiers: Chronicity: chronic Back pain laterality: midline Sciatica presence: without sciatica Qualified Code(s): M54.50 - Low back pain, unspecified; G89.29 - Other chronic pain Plan: Reinforced activity and weight-lifting restrictions Lumbar spine x-rays done back in August 2023 revealed (+) grade 1 L4-L5 spondylolisthesis and advanced L4-L5 degenerative lumbar disc disease; no fracture or dislocation of the lumbar spine is seen Continue Gabapentin 100 mg TID (7) Primary osteoarthritis of shoulders, bilateral: Code(s): M19.011 - Primary osteoarthritis, right shoulder; M19.012 - Primary osteoarthritis, left shoulder Plan: X-rays of both shoulders done a few years ago revealed (+) OA changes in both shoulders, slightly worse in the right side He was taking Meloxicam in the past for joint pains although he has not taken this in a while and has been taking OTC Ibuprofen PRN instead Will consider referral to Orthopedics for further management if his shoulder symptoms flare up again or progress (8) Increased urinary frequency: Code(s): R35.0 - Frequency of micturition Plan: Most likely due to BPH Will check U/A and PSA LEONEL for further evaluation Continue Tamsulosin 0.4 mg Q HS - Rx refilled (9) Overweight (BMI 25.0-29.9): Code(s): E66.3 - Overweight Plan: Reinforced diet/exercise as tolerated/lose weight Plan Follow up in 4 months Orders: Orders Lipid Panel 4 Months E78.00 - Pure hypercholesterolemia, unspecified Complete Blood Count Auto Diff 4 Months D64.9 - Anemia, unspecified TSH reflex Free T4 4 Months E78.00 - Pure hypercholesterolemia, unspecified UA CC w/rflx Micro + Cult 4 Months R30.0 - Dysuria AMB Hemoglobin A1c Today E11.9 - Type 2 diabetes mellitus without complications Hemoglobin A1c 4 Months E11.9 - Type 2 diabetes mellitus without complications Comprehensive [place]. Panel Fast 4 Months E78.00 - Pure hypercholesterolemia, unspecified Microalbumin, Random (w Creat) 4 Months E11.9 - Type 2 diabetes mellitus without complications Vitamin B12 and Folate 4 Months E53.8 - Deficiency of other specified B group vitamins Vitamin D 25-OH Total 4 Months E55.9 - Vitamin D deficiency, unspecified Medications: New Jardiance (empagliflozin) 25 mg PO QAM 90 days 90 tabs 1RF NS Refilled tamsulosin 0.4 mg PO BEDTIME 90 days 90 caps 1RF N40.1 - Benign prostatic hyperplasia with lower urinary tract symptoms, R35.1 - Nocturia lisinopril 20 mg PO DAILY 90 tabs 1RF Discontinued nirmatrelvir-ritonavir 300 mg (150 mg x 2)-100 mg (Paxlovid) Discontinued Reason: Patient Completed Course take TWO 150 mg tablets of nirmatrelvir with ONE 100 mg tablet of ritonavir twice daily for 5 days PO. HOLD Rosuvastatin WHILE ON Paxlovid 30 ea 0RF Coding Level of Care Code Est Pt Level 4 (97308) Diagnoses Type 2 diabetes mellitus without complication, without long-term current use of insulin E11.9 Diabetes mellitus type: type 2 Diabetes mellitus nursing home insulin use: without nursing home use Diabetes mellitus complication status: without complication Benign essential hypertension I10 Pure hypercholesterolemia E78.00 Exertional dyspnea R06.09 Vitamin D deficiency E55.9 Chronic midline low back pain without sciatica M54.50; G89.29 Chronicity: chronic Back pain laterality: midline Sciatica presence: without sciatica Primary osteoarthritis of shoulders, bilateral M19.011; M19.012 Increased urinary frequency R35.0 Overweight (BMI 25.0-29.9) E66.3 Additional Codes SAL-7 Assessment Billing - SAL-7 Assessment Tool: SAL-7 Assessment [id number] ([id number])
== END 2024-01-22 13:49 | disposition home or self-care (01) ==
PROVIDERS: PCP Internal Medicine; Visit Provider Internal Medicine
DX: E11.9 Type 2 diabetes mellitus without complications (principal); I10 Essential (primary) hypertension; E78.00 Pure hypercholesterolemia, unspecified; R06.09 Other forms of dyspnea; E55.9 Vitamin D deficiency, unspecified; M54.50 Low back pain, unspecified; G89.29 Other chronic pain; M19.011 Primary osteoarthritis, right shoulder; M19.012 Primary osteoarthritis, left shoulder; R35.0 Frequency of micturition; E66.3 Overweight
CPT/HCPCS: 83036; 99214

== ENCOUNTER 2024-01-23 10:04 | Outpatient (REF) | payer MEDICARE, SELFPAY ==
[2024-01-23 13:09] LABS: MANUAL DIFF FLAG NO
[2024-01-23 13:23] LABS: Basophils Percent Auto 0.3 % (0-2); Eosinophils Absolute Auto 0.1 X10*3/uL (0.0-0.4); Eosinophils Percent Auto 1.1 % (0-4); Hematocrit 47.4 % (42.0-52.0); Hemoglobin 15.1 g/dl (14.0-18.0); Imm Gran Abs Auto 0.05 X10*3/uL (0.00-0.03); Imm Gran Pct Auto 0.4 % (0.0-0.4); Lymphocytes Absolute Auto 2.7 X10*3/uL (1.2-4.9); Lymphocytes Percent Auto 23.3 % (20-40); Mean Corpuscular HGB Conc 31.9 g/dl (31.0-36.0); Mean Corpuscular Hemoglobin 27.3 pg (27.0-33.0); Mean Corpuscular Volume 85.6 fL (80.0-98.0); Mean Platelet Volume 10.9 fL (9.4-12.4); Monocytes Absolute Auto 0.8 X10*3/uL (0.1-1.2); Monocytes Percent Auto 6.9 % (2-11); Neutrophils Absolute Auto 7.9 x10*3/uL (2.0-8.3); Platelet Count 320 X10*3/uL (160-400); Red Blood Count 5.54 X10*6/uL (4.60-5.80); Red Cell Distribution Width 13.6 % (11.0-16.0); White Blood Count 11.7 X10*3/uL (4.8-10.8)
[2024-01-23 13:38] LABS: Estimated Average Glucose 301 mg/dL; Hemoglobin A1c % 12.1 % (<6.0)
[2024-01-23 14:03] LABS: Alanine Aminotransferase 18 U/L (0-40); Albumin Level 3.7 g/dL (3.5-5.0); Alkaline Phosphatase 105 U/L (39-117); Anion Gap 14 (12-20); Aspartate Amino Transferase 13 U/L (5-37); Bilirubin Total 0.4 mg/dL (0.0-1.0); Blood Urea Nitrogen 21 mg/dL (9-16); Calcium 9.2 mg/dL (8.4-10.2); Carbon Dioxide 23 mmol/L (22-29); Chloride 105 mmol/L (96-108); Cholesterol 139 mg/dL (<200); Estimated Glomerular Filt Rate 51; HDL Cholesterol 34 mg/dL (>40); LDL Cholesterol Calculated 77 mg/dL (<100); Potassium 4.9 mmol/L (3.3-5.1); Sodium 137 mmol/L (135-145); Total Protein 6.9 g/dL (6.5-8.0); Triglycerides 144 mg/dL (<150)
[2024-01-23 14:04] LABS: Glucose Fasting 350 mg/dL (60-99)
[2024-01-23 14:17] LABS: TSH reflex Free T4 0.83 uIU/mL (0.32-4.0); Vitamin D 25-OH Total 18.1 ng/mL (>30)
[2024-01-23 14:20] LABS: Folate 12.6 ng/mL (> or = 4.0); Vitamin B12 176 pg/mL (200-900)
== END 2024-01-23 10:05 | disposition home or self-care (01) ==
LOC: HO.HMGCLDS 10:04
PROVIDERS: PCP Internal Medicine; Visit Provider Internal Medicine
DX: E78.00 Pure hypercholesterolemia, unspecified (principal); E53.8 Deficiency of other specified B group vitamins; E55.9 Vitamin D deficiency, unspecified; E11.9 Type 2 diabetes mellitus without complications; D64.9 Anemia, unspecified
CPT/HCPCS: 36415; 80053; 80061; 82306; 82607; 82746; 83036; 84443; 85025